=== PATIENT | female | born 1995 | race African-American/Black ===

== ENCOUNTER 2021-09-26 12:30 | Emergency (ER) | payer BC, OTHER ==
[2021-09-26 12:44] VITALS: BMI 48.0
[2021-09-26] MEDS ORDERED: ALBUTEROL SO4 HFA INHALER IH ONE ×2 (14:21→15:16)
[2021-09-26 18:00] LABS: BASO % 0.9 % (0-2.0); EOS % 2.2 % (0-4.5); HEMATOCRIT 39.7 % (32.4-45.2); HEMOGLOBIN 13.3 GM/dL (10.7-15.3); MCH 28.5 pg (25.7-33.7); MCHC 33.4 g/dl (32.0-36.0); MEAN CELL VOLUME 85.3 fl (80-96); MEAN PLT VOLUME 9.2 fl (7.5-11.1); NEUT % 51.9 % (42.8-82.8); PLATELET COUNT 288 10^3/uL (134-434); RBC 4.66 M/mm3 (3.60-5.2); RDW 13.8 % (11.6-15.6); WHITE BLOOD COUNT 7.3 K/mm3 (4.0-10.0)
[2021-09-26 18:19] LABS: ALBUMIN 3.7 g/dl (3.4-5.0)
[2021-09-26 18:21] LABS: BLOOD UREA NITROGEN 13.2 mg/dL (7-18); CALCIUM 9.3 mg/dL (8.5-10.1)
[2021-09-26 18:23] LABS: CREATININE 0.8 mg/dL (0.55-1.3)
[2021-09-26 18:25] LABS: BILIRUBIN,TOTAL 0.4 mg/dL (0.2-1); TOT PROT 7.7 g/dl (6.4-8.2)
[2021-09-26 21:29] VITALS: BP 131/72; PULSE 97; TEMP 97.8
== END 2021-09-26 22:50 | disposition home or self-care (01) ==
LOC: JER 12:30
DX: R06.02 Shortness of breath (principal)
CPT/HCPCS: 36415; 71046-TC-FY; 80053; 84484; 85025; 85379; 93005; 93010; 99285-25; C9803; U0003; U0005